=== PATIENT | male | born 1985 | race American Indian/Alaskan Native ===

== ENCOUNTER 2017-03-07 18:56 | Emergency (ER) | payer OTHER ==
[~2017-03-07] VITALS: Ht 177.8 cm; Wt 75.0 kg
[2017-03-07 19:04] VITALS: BP 136/76
[2017-03-07] MEDS ORDERED: DOXYCYCLINE HYCLATE 100 MG TAB PO ONE (19:30)
[2017-03-07] MEDS ORDERED: ACETAMINOPHEN TAB 650MG DOSE (2X325MG) PO ONE (19:30)
[2017-03-07] MEDS ORDERED: DOXY100C37 PO (19:33)
[2017-03-07] MEDS ORDERED: TYLE325T5 PO (19:33)
== END 2017-03-07 19:50 | disposition home or self-care (01) ==
LOC: M ED 18:56
DX: L02.01 Cutaneous abscess of face (principal)